=== PATIENT | male | born 1975 | race Caucasian/White ===

== ENCOUNTER 2023-12-23 19:59 | Inpatient (IN) ==
[2023-12-23] MEDS: SODIUM CHLORIDE 0.9% 1,000 ML IV SCH (20:27)
[2023-12-23 20:41] LABS: Basophils # (auto) 0.06 K/uL (0.00-0.20); Basophils % (auto) 0.9 %; Eosinophils # (auto) 0.32 K/uL (0.00-0.50); Hematocrit (blood only) 47.6 % (42.0-52.0); Hemoglobin 16.8 g/dl (14.0-18.0); Immature Granulocytes # (auto) 0.02 K/uL (0.01-0.20); Immature Granulocytes % (auto) 0.3 %; Lymphocytes # (auto) 2.66 K/uL (1.20-3.40); Lymphocytes % (auto) 41.6 %; Mean Corpuscular Hemoglobin 30.5 pg (25.0-34.0); Mean Corpuscular Hgb Conc 35.3 g/dL (32.0-36.0); Mean Corpuscular Volume 86.5 fL (80.0-100.0); Mean Platelet Volume 10.5 fL (9.4-12.4); Monocytes # (auto) 0.45 K/uL (0.11-0.59); Neutrophils # (auto) 2.89 K/uL (1.40-6.50); Neutrophils % (auto) 45.2 %; Platelet Count 173 K/uL (130-400); RDW Coefficient of Variation 12.6 % (11.5-14.5); RDW Standard Deviation 39.6 fL (36.4-46.3)
[2023-12-23 20:44] LABS: Appearance Urine Clear (Clear); Bilirubin Urine Negative (Negative); Blood Urine Negative (Negative); Color Urine Yellow; Glucose Urine UA Negative (Negative); Ketones Urine Trace (Negative); Leukocyte Esterase Urine Negative (Negative); Nitrite Urine Negative (Negative); Protein Urine Negative (Negative); Specific Gravity Urine 1.028 (1.000-1.030); Urobilinogen Urine Negative (Negative); pH Urine 5.5 (4.5-7.5)
[2023-12-23 20:58] LABS: Acetaminophen < 3 ug/ml (10-30); Albumin Globulin Ratio 1.7 (0.9-2); Albumin Level 4.7 gm/dl (3.4-5.0); BUN Creatinine Ratio 21.8 (10-20); Bilirubin,Total 0.5 mg/dl (0.2-1.0); Creatinine Clr Calc Pharmacy 85.3 ml/min; Est GFR (African American) 80.3 ml/min; Est GFR (Non-African American) 69.3 ml/min; Globulin 2.8 gm/dl (2.5-4.0); Potassium 3.4 mmol/L (3.5-5.1); Salicylate < 3.0 mg/dl (3.0-30); Total Protein 7.5 gm/dl (6.0-8.3)
[2023-12-23 21:13] LABS: Thyroid Stimulating Hormone 3.142 uIu/ml (0.300-4.500)
[2023-12-23 21:13] LABS: Amphetamines+Metham, Urine Neg (Neg); Barbiturates, Urine Neg (Neg); Benzodiazepine, Urine Neg (Neg); Cocaine, Urine Neg (Neg); Fentanyl, Urine Neg (Neg); MDMA (Ecstacy), Urine Pos (Neg); Marijuana, Urine Neg (Neg); Methadone, Urine Neg (Neg); Opiate, Urine Neg (Neg); Phencyclidine, Urine Neg (Neg)
--- NOTE | 2023-12-23 21:33 | Emergency Department Note ---
History of Present Illness General Chief complaint: Overdose (Intentional) Stated complaint: SUICIDE ATTEMPT Time Seen by Provider: 12/23/23 20:14 Source: patient and family History of Present Illness Provider complaint: Overdose Onset (ago): hour(s) 1 Maximum Pain Intensity: 5 48-year-old male presents emergency department for suicidal ideation and overdose. Patient reports that approximately 1 hour ago he tried to overdose after getting into an argument with his . Patient states that he took 500 mg of Wellbutrin as well as drinking a bottle of alcohol free mouthwash. Patient reports no drugs or alcohol. No access to any firearms. Home Medications Medication Instructions Recorded Confirmed Type hydrochlorothiazide 25 mg tablet 25 mg PO DAILY 11/27/23 12/23/23 History bupropion HCl 150 mg 24 hr tablet, 150 mg PO 1XD 12/23/23 12/23/23 History extended release (Wellbutrin XL) trazodone 150 mg tablet 150 mg PO DAILY 12/23/23 12/23/23 History Allergies Allergy/AdvReac Type Severity Reaction Status Date / Time No Known Allergies Allergy NONE Unverified 10/31/21 18:00 Past Med/Surg History Problem List (Updated 12/23/23 @ 21:42 by Sebastian Orellana MD) Drug overdose (Acute) Depression with suicidal ideation (Acute) Medical History Hypertension Social History Smoking Status: Never smoker Tobacco Type: Cigarettes Preferred Language: Croatian Feels Safe at Home: Yes Gender Identity: Male Physical Exam Vital Signs Vital Signs - 24 hr 12/23/23 20:07 12/23/23 20:11 12/23/23 21:26 Temperature 36.8 C Temperature Source Temporal Artery Scan Pulse Rate 95 H 76 Respiratory Rate 20 Blood Pressure 160/103 H Blood Pressure Mean 122 Pulse Oximetry 96 Oxygen Delivery Method Room Air Room Air Sepsis Recent Fever Within 48 Hours No Sepsis New/Unexplained Change in Mental Status No Sepsis Action Taken by Nursing No Action Required Physical Exam HENT: Exam performed. -Head: Normocephalic and atraumatic. -Right Ear: External ear normal. No mastoid erythema -Left Ear: External ear normal. No mastoid erythema -Mouth/Throat: The oropharynx is clear and moist. No trismus in the jaw. No dental abscesses or uvula swelling. No oropharyngeal exudate or tonsillar abscesses. EYES: Conjunctivae and EOM are normal. Pupils are equal, round, and reactive to light. Right eye exhibits no discharge. Left eye exhibits no discharge. No scleral icterus. NECK: Normal range of motion. Neck supple. No JVD present. No rigidity. No tracheal deviation and normal range of motion present. CV: Normal rate, regular rhythm, normal heart sounds and intact distal pulses. There is no peripheral edema. Palpable radial pulses bue. PULM/CHEST: Effort normal and breath sounds normal. No respiratory distress. No stridor. She has no wheezes. She has no rales. MUSC/SKEL: Normal range of motion. There is no peripheral edema, tenderness or deformity. NEURO: She is alert and oriented to person, place, and time. She has normal strength. No cranial nerve deficit or sensory deficit. Coordination and gait normal. GCS eye subscore is 4. GCS verbal subscore is 5. GCS motor subscore is 6. Cerebellar tests wnl. No clonus. SKIN: Skin is warm and dry. She is not diaphoretic. PSYCH: She has a normal mood and affect. Behavior is normal. Judgment and thought content normal. Course Course 2013: The patient was evaluated in room A7. A complete history and physical exam was performed Cardiac monitoring: An order was placed for continuous cardiac monitoring. The monitor shows a rate of 70 with sinus rhythm interpreted by me 2053: Spoke with Bernardo from poison control. He recommends 24-hour observation given the amount of Wellbutrin that the patient ingested and possibility for decrease seizure threshold. He recommends EKG in 8 hours. He recommends supportive care and benzodiazepines as needed for any seizures. 2138: Vital signs stable. Labs are unremarkable. Patient admitted to the [facility]. Administered Medications Discontinued Medications Sodium Chloride (Nss) 1,000 mls @ 999 mls/hr IV .Q1H1M FABIO Stop: 12/23/23 21:15 Last Infusion: 12/23/23 21:28 Dose: Infused Documented By: Admin: 12/23/23 20:27 Dose: 999 mls/hr Documented By: BIJU Medical Decision Making Laboratory Data Attestation: I reviewed the patient's lab results. 12/23/23 20:25 12/23/23 20:25 Lab Results 12/23/23 12/23/23 Range/Units 20:17 20:25 WBC 6.40 (4.8-10.8) K/ul RBC 5.50 (4.70-6.10) M/uL Hgb 16.8 (14.0-18.0) g/dl Hct 47.6 (42.0-52.0) % MCV 86.5 (80.0-100.0) fL MCH 30.5 (25.0-34.0) pg MCHC 35.3 (32.0-36.0) g/dL RDW Std Deviation 39.6 (36.4-46.3) fL RDW Coeff of [place] 12.6 (11.5-14.5) % Plt Count 173 (130-400) K/uL MPV 10.5 (9.4-12.4) fL Immature Gran % (Auto) 0.3 % Neut % (Auto) 45.2 % Lymph % (Auto) 41.6 % [place] % (Auto) 7.0 % Eos % (Auto) 5.0 % Baso % (Auto) 0.9 % Neut # (Auto) 2.89 (1.40-6.50) K/uL Lymph # (Auto) 2.66 (1.20-3.40) K/uL [place] # (Auto) 0.45 (0.11-0.59) K/uL Eos # (Auto) 0.32 (0.00-0.50) K/uL Baso # (Auto) 0.06 (0.00-0.20) K/uL Immature Gran # (Auto) 0.02 (0.01-0.20) K/uL Sodium 137 (136-145) mmol/L Potassium 3.4 L (3.5-5.1) mmol/L Chloride 104 (98-107) mmol/L Carbon Dioxide 26 (21-32) mmol/L Anion Gap 7 (3-11) BUN 27 H (6-23) mg/dl Creatinine 1.24 (0.6-1.4) mg/dl Est Cr Clr Drug Dosing 85.3 ml/min Est GFR ( Amer) 80.3 ml/min Est GFR (Non-Af Amer) 69.3 ml/min BUN/Creatinine Ratio 21.8 H (10-20) Glucose 121 H (70-99(Fasting)) mg/dl Osmolality 299 (280-300) mOsm/kg Calcium 10.0 (8.6-10.3) mg/dl Total Bilirubin 0.5 (0.2-1.0) mg/dl AST 34 (13-39) U/L ALT 46 (7-52) U/L Alkaline Phosphatase 48 (34-104) U/L Total Protein 7.5 (6.0-8.3) gm/dl Albumin 4.7 (3.4-5.0) gm/dl Globulin 2.8 (2.5-4.0) gm/dl Albumin/Globulin Ratio 1.7 (0.9-2) TSH 3.142 (0.300-4.500) uIu/ml Urine Color Yellow Urine Appearance Clear (Clear) Urine pH 5.5 (4.5-7.5) Ur Specific [place] 1.028 (1.000-1.030) Urine Protein Negative (Negative) Urine Glucose (UA) Negative (Negative) Urine Ketones Trace H (Negative) Urine Blood Negative (Negative) Urine Nitrite Negative (Negative) Urine Bilirubin Negative (Negative) Urine Urobilinogen Negative (Negative) Ur Leukocyte Esterase Negative (Negative) Salicylates < 3.0 L (3.0-30) mg/dl Urine Opiates Screen Neg (Neg) Ur Methadone, Qual Neg (Neg) Urine Fentanyl Screen Neg (Neg) Acetaminophen < 3 L (10-30) ug/ml Urine Barbiturates Neg (Neg) Ur Phencyclidine (PCP) Neg (Neg) U Amphetamin/Meth Scrn Neg (Neg) MDMA (Ecstasy) Screen Pos H (Neg) U Benzodiazepines Scrn Neg (Neg) Ur Cocaine Metabolite Neg (Neg) U Marijuana (THC) Screen Neg (Neg) SARS-CoV-2, RNA, NAAT NEGATIVE (NEGATIVE) ECG Data Attestation: I personally reviewed and interpreted this ECG as follows: Indication: + toxicologic Rate (beats per minute): 67 Rhythm: + normal sinus ECG Intervals/blocks: + Normal QRS, + Normal [place] and + Normal QT-c ECG ST segments: + Normal ST segments MDM Narrative 2014: The patient was evaluated in room A7. A complete history and physical exam was performed Cardiac monitoring: An order was placed for continuous cardiac monitoring. The monitor shows a rate of 70 with sinus rhythm interpreted by me 2053: Spoke with Bernardo from poison control. He recommends 24-hour observation given the amount of Wellbutrin that the patient ingested and possibility for decrease seizure threshold. He recommends EKG in 8 hours. He recommends supportive care and benzodiazepines as needed for any seizures. 2138: Vital signs stable. Labs are unremarkable. Patient admitted to the [facility] service. Impression & Plan Depression with suicidal ideation, Drug overdose Discharge Plan Visit Data Chief Complaint: Overdose (Intentional) Stated Complaint: SUICIDE ATTEMPT ED Provider: Sebastian Orellana Discharge Problem: Depression with suicidal ideation, Drug overdose Patient Disposition: Admitted As Inpatient Forms Stand Alone Forms: [facility], [facility], Suicide Prevention Resources Prescriptions Prescriptions: No Action hydrochlorothiazide 25 mg tablet 25 mg PO DAILY bupropion HCl [Wellbutrin XL] 150 mg Tablet Extended Release 24 Hr 150 mg PO 1XD trazodone 150 mg Tablet 150 mg PO DAILY Referrals Referrals: Jose Putnam MD [Primary Care Provider] - Discharge Problem: Drug overdose Qualifiers: Encounter type: initial encounter Injury intent: accidental or unintentional Q ualified Code(s): T50.901A - Poisoning by unspecified drugs, medicaments and biological substances, accidental (unintentional), initial encounter
--- NOTE | 2023-12-23 22:41 | History & Physical Report ---
Date of Service December 23, 2023 Assessment & Plan (1) Drug overdose: Plan: 48-year-old male with past medical history significant for moderate persistent asthma, obstructive sleep apnea not using CPAP, hypertension, GERD, obesity, depression with anxiety, history of suicide attempt comes because of taking total 700 mg of Wellbutrin and also drinking half a bottle of mouthwash which is nonalcoholic. ER discussed with poison control and recommended to observe for seizures because Wellbutrin can lower seizure threshold and use benzodiazepines if needed and also follow repeat EKGs. Patient states is depressed . Currently he is feeling better as his brother is in the room. Currently has no thoughts to hurt himself. Feeling somewhat dizzy. Has some mild headache. Some blurred visions. No runny nose or sore throat or cough. No fevers. States has mild chest pain in middle of the chest. No shortness of breath. Has mild abdominal pain in periumbilical region. Had normal bowel movement in the morning. Micturating okay. Hemodynamics are okay currently. Drug overdose intentional suicidal ideation took 700milligrams of Wellbutrin and drank half a bottle of mouth Wash which is nonalcoholic. currently hemodynamically stable.. EKG okay ER discussed Poison control advised for seizure precautions and benzos if needed and for repeat EKGs seizure precaution. IV fluids will follow repeat EKG one-on-one and suicide precautions telemetry psychiatry consult in a.m. Repeat ekg qt somewhat prolonged. Poison control recommended ekg q6hrs close monitor. history of asthma stable. Will monitor hypertension on hydrochlorothiazide mild chest discomfort will follow serial enzymes and echo and ekg if any concerns will consult cardiology DVT prophylaxis SCDs for now disposition telemetry full code History of Present Illness Chief Complaint: Intentional drug overdose, depression Primary Care Provider: Jose Putnam MD 48-year-old male with past medical history significant for moderate persistent asthma, obstructive sleep apnea not using CPAP, hypertension, GERD, obesity, depression with anxiety, history of suicide attempt comes because of taking total 700 mg of Wellbutrin and also drinking half a bottle of mouthwash which is nonalcoholic. ER discussed with poison control and recommended to observe for seizures because Wellbutrin can lower seizure threshold and use benzodiazepines if needed and also follow repeat EKGs. Patient states is depressed . Currently he is feeling better as his brother is in the room. Currently has no thoughts to hurt himself. Feeling somewhat dizzy. Has some mild headache. Some blurred visions. No runny nose or sore throat or cough. No fevers. States has mild chest pain in middle of the chest. No shortness of breath. Has mild abdominal pain in periumbilical region. Had normal bowel movement in the morning. Micturating okay. Hemodynamics are okay currently. Past medical history. As mentioned above Past surgical history. Inferior turbinates ambulation. Reconstruction mandible mandibular with rigid internal fixation. Repair of inguinal hernia. Repair of nasal septum. Genioplasty/sliding osteotomy. Social history. . Quit smoking . Smoked 0.5 packs a day for 2 years. Alcohol 1-2 times per week as per records. No drug use. Family history. Mother has allergies. Aunt has breast cancer. Brother has colitis. Allergies Allergy/AdvReac Type Severity Reaction Status Date / Time No Known Allergies Allergy NONE Unverified 10/31/21 18:00 Home Medications Medication Instructions Recorded Confirmed Type hydrochlorothiazide 25 mg tablet 25 mg PO DAILY 11/27/23 12/23/23 History bupropion HCl 150 mg 24 hr tablet, 150 mg PO 1XD 12/23/23 12/23/23 History extended release (Wellbutrin XL) trazodone 150 mg tablet 150 mg PO DAILY 12/23/23 12/23/23 History Past Med/Surg History Problem List (Updated 12/23/23 @ 21:42 by Sebastian Orellana MD) Drug overdose (Acute) Depression with suicidal ideation (Acute) Medical History Hypertension Social History Smoking Status: Never smoker Tobacco Type: Cigarettes Hx Alcohol Use: No Hx Substance Use: No Preferred Language: Cymro Communication Ability: Effective Nurse Clinician Required: No Beliefs That Will Affect Care: None Current Living Situation: Family Feels Safe at Home: Yes Safety Concerns: Feels Safe At This Time Gender Identity: Male Assistive Devices: None Review of Systems Review of Systems: All systems reviewed & are unremarkable except as noted in HPI & below Physical Exam Physical Exam: General- Not in distress Head- atraumatic Eyes- PERRL. ENT- oropharynx clear Neck- supple, no JVD. Lungs- clear to auscultation no wheezing or crackles. Heart- regular rate and rhythm; no murmur, no gallop. Abdomen- normal bowel sounds, soft, nontender, no distension. Extremities- no pretibial edema, no erythema seen. Neuro- alert, oriented ; PERRL, no facial palsy; no dysarthria; moves extremities. Results & Data Results & Data Vital Signs (Past 12 Hours) Vital Signs Temp Pulse Resp BP Pulse Ox O2 Del Method 12/23/23 21:26 76 12/23/23 20:11 Room Air 12/23/23 20:07 36.8 C 95 H 20 160/103 H 96 Room Air Diagnostic Findings Laboratory Results WBC 6.40 K/ul (4.8-10.8) 12/23/23 20: RBC 5.50 M/uL (4.70-6.10) 12/23/23 20: Hgb 16.8 g/dl (14.0-18.0) 12/23/23 20: Hct 47.6 % (42.0-52.0) 12/23/23 20: MCV 86.5 fL (80.0-100.0) 12/23/23 20: MCH 30.5 pg (25.0-34.0) 12/23/23: MCHC 35.3 g/dL (32.0-36.0) 12/23/23 20: RDW Std Deviation 39.6 fL (36.4-46.3) 12/23/23: RDW Coeff of [place] 12.6 % (11.5-14.5) 12/23/23 20: Plt Count 173 K/uL (130-400) 12/23/23 20: MPV 10.5 fL (9.4-12.4) 12/23/23 20: Immature Gran % (Auto) 0.3 % 12/23/23 20: Neut % (Auto) 45.2 % 12/23/23 20: Lymph % (Auto) 41.6 % 12/23/23 20: [place] % (Auto) 7.0 % 12/23/23 20:25 Eos % (Auto) 5.0 % 12/23/23 20:25 Baso % (Auto) 0.9 % 12/23/23 20:25 Neut # (Auto) 2.89 K/uL (1.40-6.50) 12/23/23 20:25 Lymph # (Auto) 2.66 K/uL (1.20-3.40) 12/23/23 20:25 [place] # (Auto) 0.45 K/uL (0.11-0.59) 12/23/23 20:25 Eos # (Auto) 0.32 K/uL (0.00-0.50) 12/23/23 20:25 Baso # (Auto) 0.06 K/uL (0.00-0.20) 12/23/23 20:25 Immature Gran # (Auto) 0.02 K/uL (0.01-0.20) 12/23/23 20:25 Sodium 137 mmol/L (136-145) 12/23/23 20:25 Potassium 3.4 mmol/L (3.5-5.1) L 12/23/23 20:25 Chloride 104 mmol/L (98-107) 12/23/23 20:25 Carbon Dioxide 26 mmol/L (21-32) 12/23/23 20:25 Anion Gap 7 (3-11) 12/23/23 20:25 BUN 27 mg/dl (6-23) H 12/23/23 20:25 Creatinine 1.24 mg/dl (0.6-1.4) 12/23/23 20:25 Est Cr Clr Drug Dosing 85.3 ml/min 12/23/23 20:25 Est GFR ( Amer) 80.3 ml/min 12/23/23 20:25 Est GFR (Non-Af Amer) 69.3 ml/min 12/23/23 20:25 BUN/Creatinine Ratio 21.8 (10-20) H 12/23/23 20:25 Glucose 121 mg/dl (70-99(Fasting)) H 12/23/23 20:25 Osmolality 299 mOsm/kg (280-300) 12/23/23 20:25 Calcium 10.0 mg/dl (8.6-10.3) 12/23/23 20:25 Total Bilirubin 0.5 mg/dl (0.2-1.0) 12/23/23 20:25 AST 34 U/L (13-39) 12/23/23 20:25 ALT 46 U/L (7-52) 12/23/23 20:25 Alkaline Phosphatase 48 U/L (34-104) 12/23/23 20:25 Total Protein 7.5 gm/dl (6.0-8.3) 12/23/23 20:25 Albumin 4.7 gm/dl (3.4-5.0) 12/23/23 20:25 Globulin 2.8 gm/dl (2.5-4.0) 12/23/23 20:25 Albumin/Globulin Ratio 1.7 (0.9-2) 12/23/23 20:25 TSH 3.142 uIu/ml (0.300-4.500) 12/23/23 20:25 Urine Color Yellow 12/23/23 20:17 Urine Appearance Clear (Clear) 12/23/23 20:17 Urine pH 5.5 (4.5-7.5) 12/23/23 20:17 Ur Specific [place] 1.028 (1.000-1.030) 12/23/23 20:17 Urine Protein Negative (Negative) 12/23/23 20:17 Urine Glucose (UA) Negative (Negative) 12/23/23 20:17 Urine Ketones Trace (Negative) H 12/23/23 20:17 Urine Blood Negative (Negative) 12/23/23 20:17 Urine Nitrite Negative (Negative) 12/23/23 20:17 Urine Bilirubin Negative (Negative) 12/23/23 20:17 Urine Urobilinogen Negative (Negative) 12/23/23 20:17 Ur Leukocyte Esterase Negative (Negative) 12/23/23 20:17 Salicylates < 3.0 mg/dl (3.0-30) L 12/23/23 20:25 Urine Opiates Screen Neg (Neg) 12/23/23 20:17 Ur Methadone, Qual Neg (Neg) 12/23/23 20:17 Urine Fentanyl Screen Neg (Neg) 12/23/23 20:17 Acetaminophen < 3 ug/ml (10-30) L 12/23/23 20:25 Urine Barbiturates Neg (Neg) 12/23/23 20:17 Ur Phencyclidine (PCP) Neg (Neg) 12/23/23 20:17 U Amphetamin/Meth Scrn Neg (Neg) 12/23/23 20:17 MDMA (Ecstasy) Screen Pos (Neg) H 12/23/23 20:17 U Benzodiazepines Scrn Neg (Neg) 12/23/23 20:17 Ur Cocaine Metabolite Neg (Neg) 12/23/23 20:17 U Marijuana (THC) Screen Neg (Neg) 12/23/23 20:17 Ethyl Alcohol mg/dL < 10.0 mg/dl (<10.0) 12/23/23 21:03 SARS-CoV-2, RNA, NAAT NEGATIVE (NEGATIVE) 12/23/23 20:17 ECG Additional Comments: ECG. Normal sinus rhythm rate of 67. Nonspecific T wave abnormality. QTc 416. No significant change was found. Code Status & VTE Plan VTE Prophylaxis Plan VTE Prophylaxis will be ordered: Yes (1) Drug overdose Encounter type: initial encounter Injury intent: accidental or unintentional Qualified Code(s): T50.901A - Poisoning by unspecified drugs, medicaments and biological substances, accidental (unintentional), initial encounter
[2023-12-23] MEDS ORDERED: NITROGLYCERIN SL 0.4 MG/TAB TAB SL PRN (23:46)
[2023-12-24] MEDS: SODIUM CHLORIDE 0.9% 1,000 ML IV SCH (00:28)
[2023-12-24 07:55] LABS: Basophils # (auto) 0.04 K/uL (0.00-0.20); Basophils % (auto) 0.6 %; Eosinophils # (auto) 0.21 K/uL (0.00-0.50); Eosinophils % (auto) 3.3 %; Hematocrit (blood only) 45.4 % (42.0-52.0); Hemoglobin 15.9 g/dl (14.0-18.0); Immature Granulocytes # (auto) 0.02 K/uL (0.01-0.20); Immature Granulocytes % (auto) 0.3 %; Lymphocytes # (auto) 1.89 K/uL (1.20-3.40); Mean Corpuscular Hemoglobin 30.1 pg (25.0-34.0); Mean Corpuscular Volume 85.8 fL (80.0-100.0); Mean Platelet Volume 10.4 fL (9.4-12.4); Monocytes # (auto) 0.55 K/uL (0.11-0.59); Monocytes % (auto) 8.7 %; Neutrophils # (auto) 3.59 K/uL (1.40-6.50); Neutrophils % (auto) 57.1 %; Platelet Count 175 K/uL (130-400); RDW Coefficient of Variation 12.6 % (11.5-14.5); RDW Standard Deviation 39.2 fL (36.4-46.3); Red Blood Count 5.29 M/uL (4.70-6.10)
[2023-12-24] MEDS ORDERED: LEVALBUTEROL HCL 0.63 MG/3 ML NEB NEB PRN (08:02)
[2023-12-24] MEDS: hydroCHLOROthiazide 25 MG TAB PO SCH (08:08)
[2023-12-24 08:32] LABS: Albumin Level 4.2 gm/dl (3.4-5.0); BUN Creatinine Ratio 18.6 (10-20); Bilirubin Direct 0.1 mg/dl (0-0.2); Bilirubin,Total 0.6 mg/dl (0.2-1.0); Calcium 9.3 mg/dl (8.6-10.3); Creatinine Clr Calc Pharmacy 109.1 ml/min; Est GFR (African American) 108.1 ml/min; Est GFR (Non-African American) 93.2 ml/min; Magnesium 1.8 mg/dl (1.7-2.4); Potassium 3.7 mmol/L (3.5-5.1)
[2023-12-24 08:38] LABS: Troponin I High Sensitivity 2.8 pg/ml (0-20)
[2023-12-24] MEDS ORDERED: hydrALAZINE 10 MG TAB PO PRN (09:23)
[2023-12-24] MEDS: LACTATED RINGER'S 1,000 ML IV SCH (09:44)
--- NOTE | 2023-12-24 10:44 | Electrocardiogram Report ---
Test Reason : Blood Pressure : / mmHG Vent. Rate : 067 BPM Atrial Rate : 067 BPM P-R Int : 184 ms QRS Dur : 100 ms QT Int : 394 ms P-R-T Axes : 042 049 002 degrees QTc Int : 416 ms Normal sinus rhythm Nonspecific T wave abnormality Inferior leads Abnormal ECG When compared with ECG of 27-NOV-2023 05:08, No significant change was found Confirmed by Jose Baez ([id number]) on 12/24/2023 10:44:04 AM Referred By: REFERRED SELF Confirmed By:Jose Baez
--- NOTE | 2023-12-24 10:55 | Electrocardiogram Report ---
Test Reason : Blood Pressure : / mmHG Vent. Rate : 093 BPM Atrial Rate : 093 BPM P-R Int : 172 ms QRS Dur : 106 ms QT Int : 370 ms P-R-T Axes : 053 052 -40 degrees QTc Int : 460 ms Normal sinus rhythm T wave abnormality, consider inferior ischemia Prolonged QT Abnormal ECG When compared with ECG of 23-DEC-2023 20:22, T-wave inversion in Inferior leads now present Confirmed by Jose Baez ([id number]) on 12/24/2023 10:55:09 AM Referred By: REFERRED SELF Confirmed By:Jose Baez
--- NOTE | 2023-12-24 11:00 | Electrocardiogram Report ---
Test Reason : Blood Pressure : / mmHG Vent. Rate : 093 BPM Atrial Rate : 093 BPM P-R Int : 170 ms QRS Dur : 108 ms QT Int : 360 ms P-R-T Axes : 049 037 007 degrees QTc Int : 447 ms Normal sinus rhythm Diffuse Minor Nonspecific T wave abnormality Abnormal ECG When compared with ECG of 24-DEC-2023 04:38, T-wave inversion in Inferior leads less pronounced Confirmed by Jose Baez ([id number]) on 12/24/2023 11:00:36 AM Referred By: REFERRED SELF Confirmed By:Jose Baez
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
[2023-12-24] MEDS ORDERED: cloNIDine HCL 0.1 MG TAB PO PRN (12:41)
[2023-12-24] MEDS: LOSARTAN POTASSIUM 25 MG TAB PO SCH (14:30)
--- NOTE | 2023-12-24 15:47 | Hospitalist Progress Note ---
Date of Service December 24, 2023 Assessment & Plan (1) Drug overdose: Plan: 48-year-old male with past medical history significant for moderate persistent asthma, obstructive sleep apnea not using CPAP, hypertension, GERD, obesity, depression with anxiety, history of suicide attempt comes because of taking total 700 mg of Wellbutrin and also drinking half a bottle of mouthwash which is nonalcoholic. ER discussed with poison control and recommended to observe for seizures because Wellbutrin can lower seizure threshold and use benzodiazepines if needed and also follow repeat EKGs. Patient states is depressed . Currently he is feeling better as his brother is in the room. Currently has no thoughts to hurt himself. Feeling somewhat dizzy. Has some mild headache. Some blurred visions. No runny nose or sore throat or cough. No fevers. States has mild chest pain in middle of the chest. No shortness of breath. Has mild abdominal pain in periumbilical region. Drug overdose intentional Suicidal attempt Depression with suicidal ideation Patient consumed 700 mg of Wellbutrin and half bottle of mouth Wash (nonalcoholic) ER discussed Poison control advised for seizure precautions and benzos if needed and for repeat EKGs Continue seizure precautions Continue IV fluids Monitor QTC Ativan as needed for seizures Appreciate psychiatry input Cannot leave AMA, would meet 302 criteria Will hold psychiatric medications for now Suicidal precautions in place Avoid QTc prolonging meds Intermittent Chronic visual changes/photophobia Evaluated with MRI as Outpatient--no acute findings per patient Evaluated by ophthalmology as well per patient DD: Unclear if related to uncontrolled hypertension Vs migraine --CT head:No acute intracranial abnormality. Control BP Will recommend to follow-up with neurology as outpatient Hypertension --ECHO: No regional wall motion abnormality. Left ventricle systolic function is normal. EF 60 to 65%. Right ventricle is normal in size and function. No significant valvular disease. Continue HCTZ Added losartan Clonidine as needed Monitor BP and adjust medications as needed H/O Asthma No signs of exacerbation Nebs as needed Mild chest discomfort Likely related to anxiety/HTN EKG showed nonspecific T wave abnormality Troponin x 2 negative Echo showed no wall motion abnormality Monitor DVT Px: SCDs for now Code Status Full code Admission and Anticipated Discharge Date Admission Date: December 23, 2023 Subjective Patient is seen and examined at bedside Headache resolved Reports chronic photophobia and intermittent blurry vision for many months States having minimal left knee pain and left lower quadrant abdominal discomfort Discussed with psychiatry today Offers no other complaints Review of Systems Review of Systems: All systems reviewed & are unremarkable except as noted in Subjective Physical Exam Physical Exam: Physical Exam: Vitals signs as noted above General Appearance:Moderately built and nourished, no apparent distress Head: normocephalic, Atraumatic Eyes: normal inspection, EOMI Neck: supple, Trachea midline Respiratory/Chest: Normal breath sounds, CTA, No accessory muscle use Cardiovascular: S1, S2, No murmur Abdomen/GI:Soft, mild LLQ tender, Bowel sounds present Extremities/Musculoskeletal:normal inspection, no edema Neurologic/Psych:AAOX3, grossly no focal neurological deficits Skin: normal color, warm Results & Data Results & Data Vital Signs (Past 12 Hours) Vital Signs Pulse Resp BP Pulse Ox O2 Del Method 12/24/23 13:30 83 21 155/103 H 95 12/24/23 13:03 91 H 24 159/101 H 96 12/24/23 12:36 98 H 15 96 12/24/23 12:00 147/108 H 12/24/23 11:00 98 H 162/105 H 95 12/24/23 10:00 159/100 H 12/24/23 10:00 95 H 16 97 Room Air 12/24/23 09:30 148/100 H 12/24/23 09:21 98 H 23 Room Air 12/24/23 09:03 91 H 24 98 Room Air 12/24/23 09:00 164/110 H 12/24/23 08:51 87 21 12/24/23 08:42 95 H 22 12/24/23 08:30 161/111 H 12/24/23 08:01 158/101 H 12/24/23 07:57 78 24 96 Room Air 12/24/23 07:30 85 20 96 Room Air 12/24/23 07:18 81 12/24/23 07:09 83 17 97 Room Air 12/24/23 07:00 133/100 12/24/23 04:00 86 24 95 12/24/23 04:00 151/102 H 12/24/23 03:39 94 H 15 Laboratory Results Short CBC 12/23/23 12/24/23 Range/Units 20:25 07:33 WBC 6.40 6.30 (4.8-10.8) K/ul Hgb 16.8 15.9 (14.0-18.0) g/dl Hct 47.6 45.4 (42.0-52.0) % Plt Count 173 175 (130-400) K/uL BMP 12/23/23 12/24/23 20:25 07:33 Sodium 137 139 Potassium 3.4 L 3.7 Chloride 104 107 Carbon Dioxide 26 26 BUN 27 H 18 Creatinine 1.24 0.97 Glucose 121 H 85 Calcium 10.0 9.3 Liver Function 12/23/23 12/24/23 Range/Units 20:25 07:33 Total Bilirubin 0.5 0.6 (0.2-1.0) mg/dl Direct Bilirubin 0.1 (0-0.2) mg/dl AST 34 31 (13-39) U/L ALT 46 41 (7-52) U/L Alkaline Phosphatase 48 42 (34-104) U/L Albumin 4.7 4.2 (3.4-5.0) gm/dl Urine 12/23/23 Range/Units 20:17 Urine Color Yellow Urine Appearance Clear (Clear) Urine pH 5.5 (4.5-7.5) Ur Specific [place]ver 1.028 (1.000-1.030) Urine Protein Negative (Negative) Urine Glucose (UA) Negative (Negative) (1) Drug overdose Encounter type: initial encounter Injury intent: accidental or unintentional Qualified Code(s): T50.901A - Poisoning by unspecified drugs, medicaments and biological substances, accidental (unintentional), initial encounter
[2023-12-24] MEDS: LORazepam 1 MG in SYRINGE 0.5 ML IV PRN (20:42)
[2023-12-25 02:41] VITALS: TEMP 97.9
[2023-12-25 06:57] VITALS: RESP 20
[2023-12-25 07:27] LABS: Hematocrit (blood only) 47.5 % (42.0-52.0); Hemoglobin 16.8 g/dl (14.0-18.0); Mean Corpuscular Hemoglobin 30.7 pg (25.0-34.0); Mean Corpuscular Hgb Conc 35.4 g/dL (32.0-36.0); Mean Corpuscular Volume 86.8 fL (80.0-100.0); Mean Platelet Volume 10.4 fL (9.4-12.4); Platelet Count 165 K/uL (130-400); RDW Coefficient of Variation 12.9 % (11.5-14.5); RDW Standard Deviation 40.7 fL (36.4-46.3); Red Blood Count 5.47 M/uL (4.70-6.10); White Blood Count 7.27 K/ul (4.8-10.8)
[2023-12-25 08:05] LABS: BUN Creatinine Ratio 12.5 (10-20); Calcium 9.3 mg/dl (8.6-10.3); Creatinine Clr Calc Pharmacy 94.3 ml/min; Est GFR (African American) 90.8 ml/min; Est GFR (Non-African American) 78.4 ml/min; Potassium 3.9 mmol/L (3.5-5.1)
--- NOTE | 2023-12-25 08:28 | Electrocardiogram Report ---
Test Reason : Blood Pressure : / mmHG Vent. Rate : 081 BPM Atrial Rate : 081 BPM P-R Int : 178 ms QRS Dur : 088 ms QT Int : 368 ms P-R-T Axes : 045 039 021 degrees QTc Int : 427 ms Normal sinus rhythm Diffuse Minor Nonspecific T wave abnormality Abnormal ECG When compared with ECG of 24-DEC-2023 09:57, No significant change was found Confirmed by Jose Baez ([id number]) on 12/25/2023 8:28:20 AM Referred By: REFERRED SELF Confirmed By:Jose Baez
--- NOTE | 2023-12-25 08:29 | Electrocardiogram Report ---
Test Reason : Blood Pressure : / mmHG Vent. Rate : 073 BPM Atrial Rate : 073 BPM P-R Int : 176 ms QRS Dur : 100 ms QT Int : 394 ms P-R-T Axes : 044 043 040 degrees QTc Int : 434 ms Normal sinus rhythm Diffuse Minor Nonspecific T wave abnormality Abnormal ECG When compared with ECG of 24-DEC-2023 16:23, No significant change was found Confirmed by Jose Baez ([id number]) on 12/25/2023 8:28:32 AM Referred By: REFERRED SELF Confirmed By:Jose Baez
--- NOTE | 2023-12-25 12:01 | Hospitalist Progress Note ---
Date of Service December 25, 2023 Assessment & Plan (1) Drug overdose: Plan: 48-year-old male with past medical history significant for moderate persistent asthma, obstructive sleep apnea not using CPAP, hypertension, GERD, obesity, depression with anxiety, history of suicide attempt comes because of taking total 700 mg of Wellbutrin and also drinking half a bottle of mouthwash which is nonalcoholic. ER discussed with poison control and recommended to observe for seizures because Wellbutrin can lower seizure threshold and use benzodiazepines if needed and also follow repeat EKGs. Patient states is depressed . Currently he is feeling better as his brother is in the room. Currently has no thoughts to hurt himself. Feeling somewhat dizzy. Has some mild headache. Some blurred visions. No runny nose or sore throat or cough. No fevers. States has mild chest pain in middle of the chest. No shortness of breath. Has mild abdominal pain in periumbilical region. Drug overdose intentional Suicidal attempt Depression with suicidal ideation Patient consumed 700 mg of Wellbutrin and half bottle of mouth Wash (nonalcoholic) ER discussed Poison control advised for seizure precautions and benzos if needed and for repeat EKGs Continue seizure precautions Received IV fluids Monitor QTC Ativan as needed for seizures Appreciate psychiatry input Cannot leave AMA, would meet 302 criteria QTC wnl on EKG today No seizure activity while hospitalized Will hold psychiatric medications for now Suicidal precautions in place Avoid QTc prolonging meds Patient is medically stable for discharge to inpatient psychiatry Intermittent Chronic visual changes/photophobia Evaluated with MRI as Outpatient--no acute findings per patient Evaluated by ophthalmology as well per patient DD: Unclear if related to uncontrolled hypertension Vs migraine --CT head:No acute intracranial abnormality. Control BP Will recommend to follow-up with neurology as outpatient Currently visual changes, headache resolved Hypertension --ECHO: No regional wall motion abnormality. Left ventricle systolic function is normal. EF 60 to 65%. Right ventricle is normal in size and function. No significant valvular disease. Continue HCTZ Added losartan Clonidine as needed Monitor BP and adjust medications as needed Bp better H/O Asthma No signs of exacerbation Nebs as needed Mild chest discomfort Likely related to anxiety/HTN EKG showed nonspecific T wave abnormality Troponin x 2 negative Echo showed no wall motion abnormality Monitor DVT Px: SCDs for now Code Status Full code Disposition Inpatient psychiatry unit Admission and Anticipated Discharge Date Admission Date: December 23, 2023 Subjective Patient is seen and examined at bedside Patient feels well today Offers no new complaints Headache, visual changes, abdominal pain, knee pain resolved Discussed with psychiatry today Denies any chest pain, dyspnea, nausea, vomiting, abdominal pain Sitter at bedside Review of Systems Review of Systems: All systems reviewed & are unremarkable except as noted in Subjective Physical Exam Physical Exam: Physical Exam: Vitals signs as noted above General Appearance:Moderately built and nourished, no apparent distress Head: normocephalic, Atraumatic Eyes: normal inspection, EOMI Neck: supple, Trachea midline Respiratory/Chest: Normal breath sounds, CTA, No accessory muscle use Cardiovascular: S1, S2, No murmur Abdomen/GI:Soft, non tender, Bowel sounds present Extremities/Musculoskeletal:normal inspection, no edema Neurologic/Psych:AAOX3, grossly no focal neurological deficits Skin: normal color, warm Results & Data Results & Data Vital Signs (Past 12 Hours) Vital Signs Temp Pulse Resp BP Pulse Ox O2 Del Method 12/25/23 06:57 36.6 C 62 20 146/83 H 96 Room Air 12/25/23 02:41 36.6 C 66 18 126/83 95 Room Air Laboratory Results Short CBC 12/25/23 Range/Units 07:05 WBC 7.27 (4.8-10.8) K/ul Hgb 16.8 (14.0-18.0) g/dl Hct 47.5 (42.0-52.0) % Plt Count 165 (130-400) K/uL BMP 12/25/23 07:05 Sodium 139 Potassium 3.9 Chloride 106 Carbon Dioxide 27 BUN 14 Creatinine 1.12 Glucose 100 H Calcium 9.3 (1) Drug overdose Encounter type: initial encounter Injury intent: accidental or unintentional Qualified Code(s): T50.901A - Poisoning by unspecified drugs, medicaments and biological substances, accidental (unintentional), initial encounter
--- NOTE | 2023-12-25 12:27 | Discharge Summary ---
Date of Service December 25, 2023 Admission HPI Per Admitting Provider 48-year-old male with past medical history significant for moderate persistent asthma, obstructive sleep apnea not using CPAP, hypertension, GERD, obesity, depression with anxiety, history of suicide attempt comes because of taking total 700 mg of Wellbutrin and also drinking half a bottle of mouthwash which is nonalcoholic. ER discussed with poison control and recommended to observe for seizures because Wellbutrin can lower seizure threshold and use benzodiazepines if needed and also follow repeat EKGs. Patient states is depressed . Currently he is feeling better as his brother is in the room. Currently has no thoughts to hurt himself. Feeling somewhat dizzy. Has some mild headache. Some blurred visions. No runny nose or sore throat or cough. No fevers. States has mild chest pain in middle of the chest. No shortness of breath. Has mild abdominal pain in periumbilical region. Had normal bowel movement in the morning. Micturating okay. Hemodynamics are okay currently. Past medical history. As mentioned above Past surgical history. Inferior turbinates ambulation. Reconstruction mandible mandibular with rigid internal fixation. Repair of inguinal hernia. Repair of nasal septum. Genioplasty/sliding osteotomy. Social history. . Quit smoking . Smoked 0.5 packs a day for 2 years. Alcohol 1-2 times per week as per records. No drug use. Family history. Mother has allergies. Aunt has breast cancer. Brother has colitis. Admission Exam Per Admitting Provider General- Not in distress Head- atraumatic Eyes- PERRL. ENT- oropharynx clear Neck- supple, no JVD. Lungs- clear to auscultation no wheezing or crackles. Heart- regular rate and rhythm; no murmur, no gallop. Abdomen- normal bowel sounds, soft, nontender, no distension. Extremities- no pretibial edema, no erythema seen. Neuro- alert, oriented ; PERRL, no facial palsy; no dysarthria; moves extremities. Principal Diagnosis Drug overdose intentional Suicidal attempt Depression with suicidal ideation Visual changes/photophobia Hypertension Discharge Data Allergies Allergy/AdvReac Type Severity Reaction Status Date / Time No Known Allergies Allergy NONE Unverified 10/31/21 18:00 Consultations 12/23/23 21:13 ED Decision to Admit Stat 12/23/23 23:46 Consult Psychiatry Routine Procedures Performed Laboratory Results WBC 7.27 K/ul (4.8-10.8) 12/25/23 07:05 RBC 5.47 M/uL (4.70-6.10) 12/25/23 07:05 Hgb 16.8 g/dl (14.0-18.0) 12/25/23 07:05 Hct 47.5 % (42.0-52.0) 12/25/23 07:05 MCV 86.8 fL (80.0-100.0) 12/25/23 07:05 MCH 30.7 pg (25.0-34.0) 12/25/23 07:05 MCHC 35.4 g/dL (32.0-36.0) 12/25/23 07:05 RDW Std Deviation 40.7 fL (36.4-46.3) 12/25/23 07:05 RDW Coeff of Rosalia 12.9 % (11.5-14.5) 12/25/23 07:05 Plt Count 165 K/uL (130-400) 12/25/23 07:05 MPV 10.4 fL (9.4-12.4) 12/25/23 07:05 Immature Gran % (Auto) 0.3 % 12/24/23 07:33 Neut % (Auto) 57.1 % 12/24/23 07:33 Lymph % (Auto) 30.0 % 12/24/23 07:33 Garden % (Auto) 8.7 % 12/24/23 07:33 Eos % (Auto) 3.3 % 12/24/23 07:33 Baso % (Auto) 0.6 % 12/24/23 07:33 Neut # (Auto) 3.59 K/uL (1.40-6.50) 12/24/23 07:33 Lymph # (Auto) 1.89 K/uL (1.20-3.40) 12/24/23 07:33 Garden # (Auto) 0.55 K/uL (0.11-0.59) 12/24/23 07:33 Eos # (Auto) 0.21 K/uL (0.00-0.50) 12/24/23 07:33 Baso # (Auto) 0.04 K/uL (0.00-0.20) 12/24/23 07:33 Immature Gran # (Auto) 0.02 K/uL (0.01-0.20) 12/24/23 07:33 Sodium 139 mmol/L (136-145) 12/25/23 07:05 Potassium 3.9 mmol/L (3.5-5.1) 12/25/23 07:05 Chloride 106 mmol/L (98-107) 12/25/23 07:05 Carbon Dioxide 27 mmol/L (21-32) 12/25/23 07:05 Anion Gap 6 (3-11) 12/25/23 07:05 BUN 14 mg/dl (6-23) 12/25/23 07:05 Creatinine 1.12 mg/dl (0.6-1.4) 12/25/23 07:05 Est Cr Clr Drug Dosing 94.3 ml/min 12/25/23 07:05 Est GFR ( Amer) 90.8 ml/min 12/25/23 07:05 Est GFR (Non-Af Amer) 78.4 ml/min 12/25/23 07:05 BUN/Creatinine Ratio 12.5 (10-20) 12/25/23 07:05 Glucose 100 mg/dl (70-99(Fasting)) H 12/25/23 07:05 Osmolality 299 mOsm/kg (280-300) 12/23/23 20:25 Calcium 9.3 mg/dl (8.6-10.3) 12/25/23 07:05 Magnesium 1.8 mg/dl (1.7-2.4) 12/24/23 07:33 Total Bilirubin 0.6 mg/dl (0.2-1.0) 12/24/23 07:33 Direct Bilirubin 0.1 mg/dl (0-0.2) 12/24/23 07:33 AST 31 U/L (13-39) 12/24/23 07:33 ALT 41 U/L (7-52) 12/24/23 07:33 Alkaline Phosphatase 42 U/L (34-104) 12/24/23 07:33 Troponin I High Sens 2.3 pg/ml (0-20) 12/24/23 17:22 Total Protein 7.0 gm/dl (6.0-8.3) 12/24/23 07:33 Albumin 4.2 gm/dl (3.4-5.0) 12/24/23 07:33 Globulin 2.8 gm/dl (2.5-4.0) 12/23/23 20:25 Albumin/Globulin Ratio 1.7 (0.9-2) 12/23/23 20:25 TSH 3.142 uIu/ml (0.300-4.500) 12/23/23 20:25 Urine Color Yellow 12/23/23 20:17 Urine Appearance Clear (Clear) 12/23/23 20:17 Urine pH 5.5 (4.5-7.5) 12/23/23 20:17 Ur Specific [place] 1.028 (1.000-1.030) 12/23/23 20:17 Urine Protein Negative (Negative) 12/23/23 20:17 Urine Glucose (UA) Negative (Negative) 12/23/23 20:17 Urine Ketones Trace (Negative) H 12/23/23 20:17 Urine Blood Negative (Negative) 12/23/23 20:17 Urine Nitrite Negative (Negative) 12/23/23 20:17 Urine Bilirubin Negative (Negative) 12/23/23 20:17 Urine Urobilinogen Negative (Negative) 12/23/23 20:17 Ur Leukocyte Esterase Negative (Negative) 12/23/23 20:17 Salicylates < 3.0 mg/dl (3.0-30) L 12/23/23 20:25 Urine Opiates Screen Neg (Neg) 12/23/23 20:17 Ur Methadone, Qual Neg (Neg) 12/23/23 20:17 Urine Fentanyl Screen Neg (Neg) 12/23/23 20:17 Acetaminophen < 3 ug/ml (10-30) L 12/23/23 20:25 Urine Barbiturates Neg (Neg) 12/23/23 20:17 Ur Phencyclidine (PCP) Neg (Neg) 12/23/23 20:17 U Amphetamin/Meth Scrn Neg (Neg) 12/23/23 20:17 MDMA (Ecstasy) Screen Pos (Neg) H 12/23/23 20:17 U Benzodiazepines Scrn Neg (Neg) 12/23/23 20:17 Ur Cocaine Metabolite Neg (Neg) 12/23/23 20:17 U Marijuana (THC) Screen Neg (Neg) 12/23/23 20:17 Ethyl Alcohol mg/dL < 10.0 mg/dl (<10.0) 12/23/23 21:03 SARS-CoV-2, RNA, NAAT NEGATIVE (NEGATIVE) 12/23/23 20:17 Hospital Course (1) Drug overdose: 48-year-old male with past medical history significant for moderate persistent asthma, obstructive sleep apnea not using CPAP, hypertension, GERD, obesity, depression with anxiety, history of suicide attempt comes because of taking total 700 mg of Wellbutrin and also drinking half a bottle of mouthwash which is nonalcoholic. ER discussed with poison control and recommended to observe for seizures because Wellbutrin can lower seizure threshold and use benzodiazepines if needed and also follow repeat EKGs. Patient states is depressed . Currently he is feeling better as his brother is in the room. Currently has no thoughts to hurt himself. Feeling somewhat dizzy. Has some mild headache. Some blurred visions. No runny nose or sore throat or cough. No fevers. States has mild chest pain in middle of the chest. No shortness of breath. Has mild abdominal pain in periumbilical region. Drug overdose intentional Suicidal attempt Depression with suicidal ideation Patient consumed 700 mg of Wellbutrin and half bottle of mouth Wash (nonalcoholic) ER discussed Poison control advised for seizure precautions and benzos if needed and for repeat EKGs Continue seizure precautions Received IV fluids Monitor QTC Ativan as needed for seizures Appreciate psychiatry input Cannot leave AMA, would meet 302 criteria QTC wnl on EKG today No seizure activity while hospitalized Will hold psychiatric medications for now Suicidal precautions in place Avoid QTc prolonging meds Patient is medically stable for discharge to inpatient psychiatry Intermittent Chronic visual changes/photophobia Evaluated with MRI as Outpatient--no acute findings per patient Evaluated by ophthalmology as well per patient DD: Unclear if related to uncontrolled hypertension Vs migraine --CT head:No acute intracranial abnormality. Control BP Will recommend to follow-up with neurology as outpatient Currently visual changes, headache resolved Hypertension --ECHO: No regional wall motion abnormality. Left ventricle systolic function is normal. EF 60 to 65%. Right ventricle is normal in size and function. No significant valvular disease. Continue HCTZ Added losartan Clonidine as needed Monitor BP and adjust medications as needed Bp better H/O Asthma No signs of exacerbation Nebs as needed Mild chest discomfort Likely related to anxiety/HTN EKG showed nonspecific T wave abnormality Troponin x 2 negative Echo showed no wall motion abnormality Monitor DVT Px: SCDs for now Code Status Full code Disposition Inpatient psychiatry unit Total Time Total Time Spent Total Time Spent (In Minutes): 54 minutes Discharge Plan Discharge Items Patient Disposition: Transfer Behavioral Health Fac Reason For Visit: OVERDOSE INTENTIONAL DEPRESSION Discharge Diagnosis: Drug overdose intentional Suicidal attempt Depression with suicidal ideation Visual changes/photophobia Hypertension Activity: Per Instructions section Exercise/Sports: Gradually increase as tolerated Non-emergency contact: Primary Care Provider, Neurologist and Psychiatrist Call non-emergency contact if: you have any medication questions, your symptoms worsen, your pain is concerning for you and you have a fever Follow-up/Referrals: Jose Putnam MD [Primary Care Provider] - Diet: Heart Healthy Addtl Attending Provider Instructions: Follow-up with your primary care physician Dr. Putnam in 1 week Follow-up with your psychiatrist Dr. Busch as recommended Follow-up with your neurologist/fill technician for further evaluation of visual changes as outpatient --- Monitor your blood pressure regularly at home. Discuss with your physician for further adjustment of medications as needed. Seek immediate medical attention if your symptoms reoccur or worsen Please take all medications as instructed on discharge list below. Please call if you have any questions or problems. You can reach a [facility] hospitalist on duty at [facility] 24 hours a day by calling [phone] Pending Studies at Discharge: No Stand-Alone Forms: My [facility] Medications and DC Order Prescriptions: New losartan 25 mg Tablet 25 mg PO QAM Qty: 30 0RF Continued hydrochlorothiazide 25 mg tablet 25 mg PO DAILY Held bupropion HCl [Wellbutrin XL] 150 mg Tablet Extended Release 24 Hr 150 mg PO 1XD Hold Instructions: Hold until further recommendations from your psychiatrist trazodone 150 mg Tablet 150 mg PO DAILY Hold Instructions: Hold until further recommendations from your psychiatrist Discharge Orders: Discharge Order (Routine); Ordered 12/25/23 Ordered By: Hai Garibay Admission Data Admit Date/Time: 12/23/23 22:34 Attending Provider: Hai Garibay Admit Provider: Abelardo Lagos Primary Care Provider: Jose Putnam Other Providers: Abelardo Lagos; Joy Busch; Ilir Cox; Valeriy Lyon Jr; Lizette Olivier; Chelsey Smith; Dipak Barrera
[2023-12-25 12:33] VITALS: BP 166/80; O2SAT 98
[2023-12-25 14:27] VITALS: PULSE 76
--- NOTE | 2023-12-25 14:29 | Psychiatric Progress Note ---
Date of Service December 25, 2023 Impression / Recommendations Tay Olemdo is a 48 yo man admitted medically following an intentional overdose suicide attempt. Diagnostically consistent with MDD vs BPD in the context of recent stressors including marriage conflict related to his sexual orientation. Acute risk of self-harm remains elevated and high given suicide attempt requiring medical admission, major depressive symptoms, history of prior attempt, impulsivity, high psychic distress. Given elevated risk of harm to self they meet criteria for inpatient psychiatric care for diagnostic clarification, safety/stabilization, development of additional coping skills, medication shane gement and disposition/safety planning once medically stable. If they do not agree to voluntary treatment at that time they will meet criteria for 302 status based on severity of suicide attempt and ongoing modifiable risk factors. 12/25/2023: Remains agreeable for inpatient psychiatric treatment, now medically stable, signed 201 with plan for admission to [facility]. Overall, I spent a total of 30 minutes with this case including review of chart records, review of labwork, direct evaluation of the patient at bedside, counseling the patient, discussion of the patient with the hospitalist provider, discussion with the psychiatric liason during clinical rounds and documentation in the electronic health record. 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) admitted medically following suicide attempt via intentional overdose of Wellbutrin. Psychiatry consulted for risk assessment. Chief Complaint "I'm ok". Subjective Subjective Patient was seen & assessed and interval progress reviewed. Ongoing depression. Remains willing for inpatient psychiatric treatment. Notes his is working to try to make things at home easier to help with the transition back once he completes inpatient psychiatric treatment. Physical Exam Psychiatric Orientation: alert and oriented x 3 Apperance: appropriately dressed and appropriately groomed Eye Contact: good eye contact Motor Behavior: no abnormal motor movements Speech: normal rate/rhythm/volume of speech Affect: + depressed affect and + anxious affect Mood: + depressed mood and + anxious mood Thought Process: goal directed thought process Thought Content: reality based without delusions Suicidal Thoughts: denies suicidal plan (but s/p attempt) and denies suicidal intent; + reports suicidal thoughts (intermittent) Homicidal Thoughts: denies homicidal thoughts Hallucinations: no auditory hallucinations and no visual hallucinations Cognition: recent memory grossly intact, remote memory grossly intact, attention grossly intact and language grossly intact Estimated Intelligence: consistent with education level Insight: + fair insight Judgment: + limited judgement Vital Signs (Past 24 Hours) Last Vital Signs Temp 36.6 C 12/25/23 14:18 Pulse 76 12/25/23 14:26 Resp 20 12/25/23 14:18 BP 166/80 H 12/25/23 14:18 Pulse Ox 98 12/25/23 14:18 O2 Del Method Room Air 12/25/23 12:33 Results & Data ([facility]) Laboratory Results Laboratory Results - last 24 hr 12/24/23 12/25/23 17:22 07:05 WBC 7.27 RBC 5.47 Hgb 16.8 Hct 47.5 MCV 86.8 MCH 30.7 MCHC 35.4 RDW Std Deviation 40.7 RDW Coeff of Rosalia 12.9 Plt Count 165 MPV 10.4 Sodium 139 Potassium 3.9 Chloride 106 Carbon Dioxide 27 Anion Gap 6 BUN 14 Creatinine 1.12 Est Cr Clr Drug Dosing 94.3 Est GFR ( Amer) 90.8 Est GFR (Non-Af Amer) 78.4 BUN/Creatinine Ratio 12.5 Glucose 100 H Calcium 9.3 Troponin I High Sens 2.3 Current Inpatient Medications Current Inpatient Medications: Current Inpatient Medications Clonidine HCl (Clonidine Hcl 0.1 Mg Tab) 0.1 mg PO Q8H PRN PRN Reason: Hypertension SBP>180orDBP>100 Stop: 01/23/24 12:40 Hydrochlorothiazide (Hydrochlorothiazide 25 Mg Tab) 25 mg PO DAILY FABIO Stop: 01/23/24 08:59 Last Admin: 12/25/23 09:51 Dose: 25 mg Lorazepam 1 mg/ Syringe 1 mls @ 2 mls/min IV Q8H PRN PRN Reason: seizures Stop: 01/23/24 07:59 Last Admin: 12/24/23 20:42 Dose: 2 mls/min Levalbuterol HCl (Levalbuterol Hcl 0.63 Mg/3 Ml Neb) 0.63 mg NEB Q6H PRN; Protocol PRN Reason: Shortness Of Breath Or Wheezing Stop: 01/23/24 08:01 Losartan Potassium (Losartan Potassium 25 Mg Tab) 25 mg PO QAM FABIO Stop: 01/23/24 12:44 Last Admin: 12/25/23 11:16 Dose: 25 mg Nitroglycerin (Nitroglycerin Sl 0.4 Mg/Tab Tab) 0.4 mg SL Q5M PRN PRN Reason: Chest Pain Stop: 01/22/24 23:45 Mental Health & Subst Abuse Tx Therapist Name of Therapist: [facility]/[employer]ident Handler Name of Security Incident Handler: None
== END 2023-12-25 15:55 | DRG 918 ==
LOC: ED 19:59 → EDINP 22:34 → 2S 23:46

== ENCOUNTER 2023-12-25 14:11 | Inpatient (IN) ==
[2023-12-25] MEDS ORDERED: SODIUM CHLORIDE 0.65% NA SOLN 45 ML (OCEAN) PRN (14:23)
[2023-12-25] MEDS ORDERED: BISMUTH SUBSALICYLATE LIQD 236 ML PO PRN (14:23)
[2023-12-25] MEDS ORDERED: MAGNESIUM HYDROXIDE SUSP 30 ML UDC PO PRN (14:23)
[2023-12-25] MEDS ORDERED: ALUMINUM/MAGNESIUM SUSP 30 ML UDC PO PRN (14:23)
[2023-12-25] MEDS: hydrOXYzine HCl 25 MG TAB PO PRN (18:57)
[2023-12-26] MEDS: LOSARTAN POTASSIUM 25 MG TAB PO SCH (08:08)
[2023-12-26] MEDS: hydroCHLOROthiazide 25 MG TAB PO SCH (08:08)
[2023-12-26] MEDS: ACETAMINOPHEN 325 MG TAB PO PRN (11:19)
[2023-12-26] MEDS: SERTRALINE HCL 50 MG TABLET PO SCH (12:04)
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
[2023-12-27] MEDS: CHOLECALCIFEROL 125 MCG (5,000 UNITS) TAB PO SCH (12:34)
--- NOTE | 2023-12-27 14:28 | Psychiatric Progress Note ---
Date of Service December 27, 2023 Impression / Recommendations Impression ALBIN PASCAL is a 48-year-old white homosexual male who presents with a suicide attempt by overdose on home Wellbutrin and half bottle of mouthwash in the context of marital conflicts regarding his sexuality and future.and was admitted on 12/25/23 16:05 on a 201 voluntary commitment for suicide attempt. A: Patient is tolerating sertraline with minimal side effects. Vitamin D and B12 levels checked; vitamin B12 within normal limits and vitamin D was insufficient and 5000 units daily supplementation started. Patient is future oriented and establishing a plan. Appears more hopeful. Overall, I spent a total of 40 minutes with this case including review of chart records, nursing report, review of lab work, direct evaluation of the patient at bedside, counseling the patient, multidisciplinary team meeting, orders, and documentation in the electronic health record. (1) Suicide attempt by drug ingestion: (2) Depression with suicidal ideation: (3) Marital conflict: (4) Hypertension: Plan 12/27/2023: Vit D level insufficient- Vit D 5000 u daily started. 12/26/2023: Start sertraline 50 mg daily. Vitamin D and B12 lab to be drawn tomorrow a.m. Inventory Assets Strengths: social supports, employement Needs: counseling, conflict resolution Suicide Risk Level Suicide Risk Level: Moderate (q15 min suicide checks) Risk Factors Assessment Male: Yes : Yes Do You Have Access To A Gun?: No Health Problems: Yes Mental Health Diagnoses: Yes Substance Use Disorders: No Previous Attempt: Yes Family History of Suicide: No Previous Psychiatric Hospitalization: Yes Hopelessness: Yes Protective Factors Assessment Jehovah'S Witness Beliefs: Yes : Yes Responsible for Young Children: Yes Employed: Yes Stable Relationships: No Supportive Family: Yes Good Rapport with Provider: Yes Absence of Any Risk Factors Above: No Review of Systems Sleep Information Total Hours of Sleep: 7.5 Meal Information Percent Meal Consumed - Breakfast: 100 Percent Meal Consumed - Lunch: 100 Percent Meal Consumed - Dinner: 95 Subjective Subjective Patient was seen & assessed and interval progress reviewed with nursing and social work The patient reports not wanting to go back home. He reports not being heard or listened to by his . He feels he needs time away to reflect on his situation and what he wants. He is considering divorce but is unsure of how that will play out with the children. He is afraid to go back home to his because he feels it will trigger anxiety. He presents plan to go to a long-term residential stay and has called and confirmed a bed is available. He denies current suicidal ideation. He was updated about his labs and agreeable to starting vitamin D supplementation. Reports having a headache since initiating sertraline. Tylenol effective. No further concerns reported. Physical Exam Mental Examination Appearance: Unkempt Eye Contact: Maintains Eye Contact Motor Behavior: Unremarkable Speech: Normal Mood: Anxious Affect: Congruent Thought Process: Intact and Linear Thought Content: Intact Hallucinations: None Insight: Fair (to limited) Judgement: Poor Vital Signs (Past 24 Hours) Last Vital Signs Temp 36.9 C 12/27/23 06:34 Pulse 71 12/27/23 06:35 Resp 16 12/27/23 06:34 BP 135/96 12/27/23 06:35 Pulse Ox 98 12/25/23 17:43 O2 Del Method Room Air 12/25/23 17:43 Results & Data ([facility]) Laboratory Results Laboratory Results - last 24 hr 12/27/23 12/27/23 07:17 07:18 Vitamin B12 828 25-OH Vitamin D Total 18.0 L Current Inpatient Medications Current Inpatient Medications: Current Inpatient Medications Acetaminophen (Acetaminophen 325 Mg Tab) 650 mg PO Q4H PRN PRN Reason: Headache or Minor Fever Stop: 01/24/24 14:22 Last Admin: 12/26/23 11:19 Dose: 650 mg Al Hydrox/Mg Hydrox/Simethicone (Aluminum/Magnesium Susp 30 Ml Udc) 30 ml PO Q4H PRN PRN Reason: GI Upset Stop: 01/24/24 14:22 Bismuth Subsalicylate (Bismuth Subsalicylate Liqd 236 Ml) 15 ml PO PRN PRN PRN Reason: Loose Stool Stop: 01/24/24 14:22 Hydrochlorothiazide (Hydrochlorothiazide 25 Mg Tab) 25 mg PO DAILY [facility] Stop: 01/25/24 08:59 Last Admin: 12/27/23 08:17 Dose: 25 mg Hydroxyzine HCl (Hydroxyzine Hcl 25 Mg Tab) 50 mg PO HSZ PRN PRN Reason: Insomnia Stop: 01/24/24 14:22 Hydroxyzine HCl (Hydroxyzine Hcl 25 Mg Tab) 25 mg PO Q4H PRN PRN Reason: Anxiety Stop: 01/24/24 14:22 Last Admin: 12/25/23 18:57 Dose: 25 mg Losartan Potassium (Losartan Potassium 25 Mg Tab) [facility] Stop: 01/25/24 08:59 Last Admin: 12/27/23 08:17 Dose: 25 mg Magnesium Hydroxide (Magnesium Hydroxide Susp 30 Ml Udc) 30 ml PO DAILY PRN PRN Reason: Constipation Stop: 01/24/24 14:22 Sertraline HCl (Sertraline Hcl 50 Mg Tablet) [address] [facility] Stop: 01/25/24 11:14 Last Admin: 12/27/23 08:18 Dose: 50 mg Sodium Chloride (Sodium Chloride 0.65% Na Soln 45 Ml ([place])) 1 - 2 sprays NA PRN PRN PRN Reason: Nasal Dryness/Congestion Stop: 01/24/24 14:22 Vitamin D (Cholecalciferol 125 Mcg (5,000 Units) Tab) [address] [facility] Stop: 01/26/24 12:14 Last Admin: 12/27/23 12:34 Dose: 125 mcg Mental Health & Subst Abuse Tx Therapist Name of Therapist: [facility] - [facility] Post Discharge Appointments Primary Care Physician Name Of Family Doctor/PCP: Kelsie Putnam
--- NOTE | 2023-12-28 15:20 | Psychiatric Progress Note ---
Date of Service December 28, 2023 Impression / Recommendations Impression ALBIN PASCAL is a 48-year-old white homosexual male who presents with a suicide attempt by overdose on home Wellbutrin and half bottle of mouthwash in the context of marital conflicts regarding his sexuality and future.and was admitted on 12/25/23 16:05 on a 201 voluntary commitment for suicide attempt. A: Patient is tolerating the sertraline well. Today we discussed the steps that led to his recent overdose attempts and future prevention. He presents a plan to continue care at an outside residential facility to reflect on his situation and needs. Overall, I spent a total of 40 minutes with this case including review of chart records, nursing report, review of lab work, direct evaluation of the patient at bedside, counseling the patient, multidisciplinary team meeting, orders, and documentation in the electronic health record. (1) Suicide attempt by drug ingestion: (2) Depression with suicidal ideation: (3) Marital conflict: (4) Hypertension: Plan 12/27/2023: Vit D level insufficient- Vit D 5000 u daily started. 12/26/2023: Start sertraline 50 mg daily. Vitamin D and B12 lab to be drawn tomorrow a.m. Inventory Assets Strengths: social supports, employement Needs: counseling, conflict resolution Suicide Risk Level Suicide Risk Level: Moderate (q15 min suicide checks) Risk Factors Assessment Male: Yes : Yes Do You Have Access To A Gun?: No Health Problems: Yes Mental Health Diagnoses: Yes Substance Use Disorders: No Previous Attempt: Yes Family History of Suicide: No Previous Psychiatric Hospitalization: Yes Hopelessness: Yes Protective Factors Assessment Worship Beliefs: Yes : Yes Responsible for Young Children: Yes Employed: Yes Stable Relationships: No Supportive Family: Yes Good Rapport with Provider: Yes Absence of Any Risk Factors Above: No Interval History Identifying Information ALBIN PASCAL is a 48-year-old white homosexual male who presents with a suicide attempt by overdose on home Wellbutrin and half bottle of mouthwash in the context of marital conflicts regarding his sexuality and future needs. Was admitted on 12/25/23 16:05 on a 201 voluntary commitment for suicide attempt. Chief Complaint Hopelessness Review of Systems Sleep Information Total Hours of Sleep: 7 Meal Information Percent Meal Consumed - Breakfast: 100 Percent Meal Consumed - Lunch: 100 Percent Meal Consumed - Dinner: 100 Subjective Subjective Patient was seen & assessed and interval progress reviewed with treatment team nursing and social work Patient reports doing well. He wants to avoid the anxiety triggered from being at home and is looking forward to spending a month in a long-term facility in [place]. He is awaiting acceptance and can potentially fly there tomorrow. He plans to gather his belongings from home. He denies suicidal ideation. Has reservations about whether he can go there alone. When reflecting back on the last overdose attempt he reports leaving the hospital too early and was not prioritizing his own self needs. He feels he went into the home situation too quickly. He reports tolerating sertraline well; he denies headache or GI upset. Physical Exam Mental Examination Appearance: Unkempt Eye Contact: Maintains Eye Contact Motor Behavior: Unremarkable Speech: Normal Mood: Euthymic and Calm Affect: Congruent Thought Process: Intact and Linear Thought Content: Intact Hallucinations: None Insight: Fair (to limited) Judgement: Poor Vital Signs (Past 24 Hours) Last Vital Signs Temp 36.8 C 12/28/23 06:34 Pulse 76 12/28/23 06:35 Resp 16 12/28/23 06:34 BP 148/108 H 12/28/23 06:35 Pulse Ox 98 12/25/23 17:43 O2 Del Method Room Air 12/25/23 17:43 Results & Data ([facility]) Current Inpatient Medications Current Inpatient Medications: Current Inpatient Medications Acetaminophen (Acetaminophen 325 Mg Tab) 650 mg PO Q4H PRN PRN Reason: Headache or Minor Fever Stop: 01/24/24 14:22 Last Admin: 12/26/23 11:19 Dose: 650 mg Al Hydrox/Mg Hydrox/Simethicone (Aluminum/Magnesium Susp 30 Ml Udc) 30 ml PO Q4H PRN PRN Reason: GI Upset Stop: 01/24/24 14:22 Bismuth Subsalicylate (Bismuth Subsalicylate Liqd 236 Ml) 15 ml PO PRN PRN PRN Reason: Loose Stool Stop: 01/24/24 14:22 Hydrochlorothiazide (Hydrochlorothiazide 25 Mg Tab) 25 mg PO DAILY [facility] Stop: 01/25/24 08:59 Last Admin: 12/28/23 08:27 Dose: 25 mg Hydroxyzine HCl (Hydroxyzine Hcl 25 Mg Tab) 50 mg PO HSZ PRN PRN Reason: Insomnia Stop: 01/24/24 14:22 Hydroxyzine HCl (Hydroxyzine Hcl 25 Mg Tab) 25 mg PO Q4H PRN PRN Reason: Anxiety Stop: 01/24/24 14:22 Last Admin: 12/25/23 18:57 Dose: 25 mg Losartan Potassium (Losartan Potassium 25 Mg Tab) 25 mg PO QAM [facility] Stop: 01/25/24 08:59 Last Admin: 12/28/23 08:29 Dose: 25 mg Magnesium Hydroxide (Magnesium Hydroxide Susp 30 Ml Udc) 30 ml PO DAILY PRN PRN Reason: Constipation Stop: 01/24/24 14:22 Sertraline HCl (Sertraline Hcl 50 Mg Tablet) 50 mg PO QAM [facility] Stop: 01/25/24 11:14 Last Admin: 12/28/23 08:30 Dose: 50 mg Sodium Chloride (Sodium Chloride 0.65% Na Soln 45 Ml ([place])) 1 - 2 sprays NA PRN PRN PRN Reason: Nasal Dryness/Congestion Stop: 01/24/24 14:22 Vitamin D (Cholecalciferol 125 Mcg (5,000 Units) Tab) 125 mcg PO QAM [facility] Stop: 01/26/24 12:14 Last Admin: 12/28/23 08:29 Dose: 125 mcg Mental Health & Subst Abuse Tx Therapist Name of Therapist: [facility] - [facility] Post Discharge Appointments Primary Care Physician Name Of Family Doctor/PCP: Kelsie Putnam
[2023-12-28] MEDS: hydrOXYzine HCl 25 MG TAB PO PRN (20:22)
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
== END 2023-12-29 10:01 | disposition home or self-care (01) | DRG 885 ==
LOC: 3S 16:05